=== PATIENT | female | born 1980 | race African-American/Black ===

== ENCOUNTER 2017-10-30 08:00 | Emergency (ER) | payer OTHER ==
[~2017-10-30] VITALS: Ht 170.2 cm; Wt 83.9 kg
[~2017-10-30 08:00] MED LIST: ACCUNEB SO1.25 MG/1; ALBUTEROL2.5 MG/0.1; CLEOCIN HCL300 MG PO; IBUPROFEN 600600 M1 PO; MEDROLDOSEPACK PO; NOHOMEMEDICATIONS; NORCO 5-325 TA1 EACH PO; POLYMYXIN B/TMP10 ML OP; PREDNISONE 20 M20 M1 PO; PREDNISONE 20 M20 MG PO; PRENATAL PO; PROVENTIL HFA6.7 G1 INH; TOBREX5 ML OPHTHALMIC; VENTOLIN HFA 1818 GM INH; ZPAK PO; ZYRTEC10 M5 PO
[2017-10-30 08:15] VITALS: BP 118/62
== END 2017-10-30 08:56 | disposition home or self-care (01) ==
LOC: ER 08:00
DX: S29.012A Strain of muscle and tendon of back wall of thorax, initial encounter (principal); J45.909 Unspecified asthma, uncomplicated; X58.XXXA Exposure to other specified factors, initial encounter; Y92.89 Other specified places as the place of occurrence of the external cause; Y93.89 Activity, other specified; Y99.8 Other external cause status

== ENCOUNTER 2018-12-24 05:43 | Emergency (ER) | payer OTHER ==
[~2018-12-24] VITALS: Ht 162.6 cm; Wt 93.0 kg
[2018-12-24] MEDS ORDERED: ULTRAM 50MG TAB50 MG PO (06:10)
[2018-12-24 06:22] VITALS: BP 104/76
== END 2018-12-24 06:31 | disposition home or self-care (01) ==
LOC: ER 05:43
DX: S71.042A Puncture wound with foreign body, left hip, initial encounter (principal); J45.909 Unspecified asthma, uncomplicated; X58.XXXA Exposure to other specified factors, initial encounter; Y92.89 Other specified places as the place of occurrence of the external cause; Y93.89 Activity, other specified; Y99.8 Other external cause status